=== PATIENT | female | born 1940 | race African-American/Black ===

== ENCOUNTER 2018-12-05 21:39 | Inpatient (IN) | payer OTHER ==
[~2018-12-05] VITALS: Ht 165.1 cm; Wt 73.5 kg
[2018-12-06] MEDS ORDERED: ASPIRIN 81MG TABLET PO ONE (03:45)
[2018-12-06 04:46] LABS: BASOPHILS % 1.3 % (0.0-2.0); EOSINOPHILS % 1.1 % (0.0-5.0); HEMATOCRIT. 43.5 % (36.0-48.0); HEMOGLOBIN. 14.2 g/dL (12.0-16.0); LYMPHOCYTES % 32.8 % (20.0-50.0); MEAN CORPUSCULAR HEMOGLOBIN 28.8 pg (28.0-32.0); MEAN CORPUSCULAR VOLUME 88.3 fL (81.0-99.0); MEAN PLATELET VOLUME 7.5 fl (7.4-10.4); MONOCYTES % 4.9 % (2.0-8.0); NEUTROPHILS % 59.9 % (40.0-76.0); PLATELET 252 x1000/uL (130-400); RED BLOOD CELL COUNT 4.93 mill/uL (4.2-5.4); RED CELL DISTRIBUTION WIDTH 14.1 % (11.6-14.6)
[2018-12-06 05:10] LABS: CHLORIDE 103 mEq/L (98-107)
[2018-12-06 05:25] LABS: CLARITY URINE CLEAR (CLEAR); COLOR URINE YELLOW (YELLOW); KETONES URINE NEGATIVE (NEGATIVE); LEUKOCYTE ESTERASE URINE NEGATIVE (NEGATIVE); NITRITE URINE NEGATIVE (NEGATIVE); OCCULT BLOOD URINE NEGATIVE (NEGATIVE); PROTEIN URINE NEGATIVE (NEGATIVE); SPECIFIC GRAVITY URINE 1.007 (1.005-1.030); UROBILINOGEN URINE 0.2 E.U./dL (0.2-1.0)
[2018-12-06] MEDS ORDERED: IPRATROPIUM/ALBUTEROL 0.5-3(2.5)MG/3ML NEB INH PRN (16:00)
[2018-12-06] MEDS ORDERED: ONDANSETRON HCL 4MG/2ML INJ IV PRN (16:00)
[2018-12-06 20:00] VITALS: BP 140/57
[2018-12-06 23:00] VITALS: BP 140/57
[2018-12-06] MEDS ORDERED: HYDROCODONE/ACETAMINOPHEN 5/325MG TABLET PO PRN (23:40)
[2018-12-06] MEDS ORDERED: ACETAMINOPHEN 325MG TABLET PO PRN (23:40)
[2018-12-06] MEDS ORDERED: CLONIDINE 0.1MG TABLET PO PRN (23:40)
[2018-12-07] VITALS: BP 131/62
[2018-12-07] MEDS: AMLODIPINE 2.5MG TABLET PO SCH ×2 (00:10→08:52)
[2018-12-07] MEDS: METOPROLOL TARTRATE 25MG TABLET PO SCH ×2 (00:11→08:51)
[2018-12-07] MEDS ORDERED: ASPI-1159 PO (01:49)
[2018-12-07] MEDS ORDERED: AMLO10TA80 PO (01:49)
[2018-12-07] MEDS ORDERED: METO-396 PO (01:49)
[2018-12-07 04:00] VITALS: BP 140/50
[2018-12-07 07:01] LABS: BASOPHILS % 1.3 % (0.0-2.0); EOSINOPHILS % 2.5 % (0.0-5.0); HEMATOCRIT. 42.7 % (36.0-48.0); HEMOGLOBIN. 13.9 g/dL (12.0-16.0); LYMPHOCYTES % 38.2 % (20.0-50.0); MEAN CORPUSCULAR HEMOGLOBIN 28.8 pg (28.0-32.0); MEAN CORPUSCULAR VOLUME 88.2 fL (81.0-99.0); MEAN PLATELET VOLUME 7.6 fl (7.4-10.4); MONOCYTES % 7.9 % (2.0-8.0); NEUTROPHILS % 50.1 % (40.0-76.0); PLATELET 237 x1000/uL (130-400); RED BLOOD CELL COUNT 4.84 mill/uL (4.2-5.4); RED CELL DISTRIBUTION WIDTH 14.3 % (11.6-14.6)
[2018-12-07 07:09] LABS: CHLORIDE 105 mEq/L (98-107)
[2018-12-07 07:25] LABS: LDL CHOLESTEROL 49 mg/dL (5-100)
[2018-12-07 07:26] LABS: CREATINE KINASE 37 IU/L (26-192); HDL CHOLESTEROL 52 mg/dL (40-59)
[2018-12-07 07:27] LABS: T4 FREE 1.07 ng/dL (0.76-1.46)
[2018-12-07 07:30] LABS: CREATINE KINASE MB FRACTION < 1.0 ng/mL (0.5-3.6)
[2018-12-07 08:00] VITALS: BP 154/79
[2018-12-07] MEDS ORDERED: ENOXAPARIN 40MG/0.4ML SYR SUBCUT SCH (09:00)
[2018-12-07] MEDS ORDERED: ASPIRIN 81MG EC TABLET PO SCH (09:00)
[2018-12-07] MEDS ORDERED: REGADENOSON 0.4 MG/5 ML IV ONE (09:45)
[2018-12-07 12:00] VITALS: BP 141/75
[2018-12-07] MEDS ORDERED: PNEUMOCOCCAL 23-VAL P-SAC VAC 0.5 ML IM ONE (12:00)
[2018-12-07 16:00] VITALS: BP 134/57
[2018-12-07 19:17] VITALS: BP 134/96
== END 2018-12-07 20:12 | disposition home or self-care (01) | DRG 206 ==
LOC: ER 21:39 → 7WST 12-06 06:43 → ENRESERV 12-06 19:49
PROVIDERS: ADMIT Ophthalmology; ATTEND Ophthalmology
DX: M94.0 Chondrocostal junction syndrome [Tietze] (principal); E11.9 Type 2 diabetes mellitus without complications; E78.00 Pure hypercholesterolemia, unspecified; E78.5 Hyperlipidemia, unspecified; R10.9 Unspecified abdominal pain; I10 Essential (primary) hypertension; R00.1 Bradycardia, unspecified; E11.65 Type 2 diabetes mellitus with hyperglycemia; I25.10 Atherosclerotic heart disease of native coronary artery without angina pectoris; I25.2 Old myocardial infarction; Z79.82 Long term (current) use of aspirin; Z85.3 Personal history of malignant neoplasm of breast; Z86.73 Personal history of transient ischemic attack (TIA), and cerebral infarction without residual deficits; Z87.891 Personal history of nicotine dependence; Z90.11 Acquired absence of right breast and nipple; Z95.5 Presence of coronary angioplasty implant and graft; Z82.49 Family history of ischemic heart disease and other diseases of the circulatory system; K29.70 Gastritis, unspecified, without bleeding
CPT/HCPCS: 36415; 71045; 78452; 80061; 82550; 82553; 82962; 83036; 83605; 83880; 84439; 84443; 84484; 90732; 93005; 93017; 93306; 99284; 99285; A9500; J1650; J2785